=== PATIENT | female | born 1955 | race Caucasian/White ===

== ENCOUNTER 2022-08-31 09:29 | Emergency (ER) | payer MEDICARE, OTHER ==
[2022-08-31 10:31] LABS: SODIUM,NA 144 mEq/L (136-145)
[2022-08-31 10:41] LABS: CHLORIDE,CL 105 mEq/L (98-106)
[2022-08-31 10:42] LABS: ESTIMATED GFR 82 mL/min (>=60)
[2022-08-31] MEDS ORDERED: Sodium Chloride 0.9% 1,000 ML IV ONE (10:47)
[2022-08-31] MEDS ORDERED: Magnesium Sulfate/Water 2 GM in Premix Bag 1 BAG IV ONE (10:49)
[2022-08-31] MEDS ORDERED: Iopamidol 755 Mg/ML 100 ML Bottle IVPUSH ONE (11:58)
[2022-08-31] MEDS: Potassium Chloride Riders 20 MEQ in Premix Bag 1 BAG IV SCH ×2 (12:19→12:59)
[2022-08-31] MEDS ORDERED: POTASSIUM CHLORIDE RIDERS IV ONE (12:51)
[2022-08-31] MEDS ORDERED: Lidocaine 1% 5 ML VIAL INJECT ONE (13:35)
[2022-08-31] MEDS ORDERED: Take Home: Ciprofloxacin 500 MG Tab, 2 Tab Pack PO ONE (14:22)
[2022-08-31] MEDS ORDERED: Take Home: metroNIDAZOLE 500 MG Tab, 4 Tab Pack PO ONE (14:24)
== END 2022-08-31 16:05 | disposition home or self-care (01) ==
LOC: CC.ED 09:29
DX: K92.2 Gastrointestinal hemorrhage, unspecified (principal); K52.9 Noninfective gastroenteritis and colitis, unspecified; E87.6 Hypokalemia; E83.42 Hypomagnesemia; F17.210 Nicotine dependence, cigarettes, uncomplicated; Z88.0 Allergy status to penicillin; Z88.5 Allergy status to narcotic agent; Z79.899 Other long term (current) drug therapy
CPT/HCPCS: 36415; 74177; 80053; 82272; 83735; 85025; 86140; 96365; 96366; 96367; 99284; 99284-25; A9270-GY; J3475; J3480; J7030; Q9967